=== PATIENT | female | born 1960 | race Caucasian/White ===

== ENCOUNTER 2016-12-06 03:26 | Emergency (ER) | payer MEDICAID ==
[~2016-12-06] VITALS: Ht 172.7 cm; Wt 71.0 kg
[2016-12-06 03:34] VITALS: BP 115/82; PULSE 54; RESP 18; TEMP 98; O2SAT 95
--- NOTE | 2016-12-06 03:41 | PD ---
HPI Chief Complaint: Cold / Flu Symptoms Time Seen by Provider: 03:36 Travel History International Travel<30 days: No Contact w/Intl Traveler<30days: No Traveled to known affect area: No History of Present Illness HPI This is a 56-year-old female who presents to the emergency department with chest discomfort associated with a productive cough with black sputum, moderate severity, worse with deep breaths improved with rest. She says she's had some chills. She says she always feels cold. She was arguing with her earlier this evening prior to calling the ambulance for her symptoms. PFSH Past Medical History Cardiovascular Problems: Yes (htn) Chemotherapy: Yes Diabetes: Yes Social History Tobacco Use: Yes Allergies-Medications (Allergen,Severity, Reaction): Coded Allergies: Codeine (Verified Allergy, Intermediate, Nausea/Vomiting, 12/06/16) Penicillin (Verified Adverse Reaction, Intermediate, Nausea/Vomiting, ) Reported Meds & Prescriptions Reported Meds & Active Scripts Active No Active Prescriptions or Reported Medications Review of Systems Except as stated in HPI: all other systems reviewed are Neg Physical Exam Narrative GENERAL: Disheveled. SKIN: Focused skin assessment warm and dry. HEAD: Atraumatic. Normocephalic. EYES: Pupils equal and round. No injection or drainage. ENT: Moist mucous membranes NECK: Trachea midline. CARDIOVASCULAR: Regular rate and rhythm. No murmur appreciated. RESPIRATORY: Clear to auscultation. Breath sounds equal bilaterally. GASTROINTESTINAL: Abdomen soft, non-tender, nondistended. MUSCULOSKELETAL: No obvious deformities. NEUROLOGICAL: Awake and alert. No obvious cranial nerve deficits. Moving all extremities. PSYCHIATRIC: Appropriate mood and affect; insight and judgment normal. Data Data Last Documented VS Vital Signs Date Time Temp Pulse Resp B/P Pulse Ox O2 Delivery O2 Flow Rate FiO2 12/06/16 03:34 98.0 54 18 115/82 95 Orders Electrocardiogram (12/06/16 ) [facility] Medical Decision Making Medical Screen Exam Complete: Yes Emergency Medical Condition: Yes Interpretation(s) EKG: Normal sinus rhythm with no ST changes Differential Diagnosis Bronchitis, acute coronary syndrome, pneumonia Narrative Course This is a 56-year-old female who presents to the emergency department with some chest discomfort and productive cough with dark sputum. Vital signs are reassuring with no hypoxia. EKG was nonischemic. Patient's symptoms are more consistent with acute bronchitis and I doubt this reflects an acute coronary syndrome. I discussed with the patient the options of getting blood work or limiting her evaluation to EKG and she would prefer to defer blood work and try a course of antibiotics. I don't think there is an emergent etiology of the patient's symptoms. Patient will be discharged home on Azithromycin. Diagnosis Primary Impression: Bronchitis Patient Instructions: General Instructions Additional Instructions: If you develop severe chest pain, shortness of breath, sweating, lightheadedness , dizziness or difficulty breathing return to the emergency department immediately. Followup with your primary care physician in 2-3 days if your symptoms are not resolved. Med/Other Pt SpecificInfo: Prescription(s) given Scripts Azithromycin 250 Mg [id number] Mg PO DIRECTED #6 TAB Take 2 tabs (500 mg) on day 1 then 1 tab daily x 4 days. Prov:Jhoana Adame MD 12/06/16 Disposition: DISCHARGE HOME Condition: Stable Jhoana Adame MD Dec 06, 2016 03:41
[2016-12-06] MEDS ORDERED: AZIT250T3 PO (03:54)
--- NOTE | 2016-12-06 14:27 | EKG ---
Date Performed: 12/06/2016 Time Performed: 03:49:58 PTAGE: 56 years EKG: SINUS BRADYCARDIA POSSIBLE RIGHT VENTRICULAR CONDUCTION DELAY BORDERLINE ECG NO PREVIOUS TRACING DOCTOR: Gia Dc Interpretating Date/Time 12/06/2016 14:24:16
== END 2016-12-06 06:49 | disposition home or self-care (01) ==
LOC: NEPC 03:26
DX: J40 Bronchitis, not specified as acute or chronic (principal)
CPT/HCPCS: 93005